=== PATIENT | male | born 1970 | race Asian ===

== ENCOUNTER 2017-01-26 15:57 | Emergency (ER) | payer OTHER ==
[2017-01-26 18:00] LABS: CALCIUM 8.9 mg/dL (8.5-10.1); CREATININE SERUM 1.4 mg/dL (0.7-1.3); POTASSIUM SERUM 4.1 mmol/L (3.5-5.1)
[2017-01-26 18:31] VITALS: BP 134/76
== END 2017-01-26 18:31 | disposition home or self-care (01) ==
LOC: ED 15:57 → EDSEX 15:57 → ED 18:31
PROVIDERS: Emergency Medicine
DX: R51 Headache (principal); R03.0 Elevated blood-pressure reading, without diagnosis of hypertension; R11.0 Nausea
CPT/HCPCS: J1885; J2765; Q0163